=== PATIENT | male | born 1960 | race Caucasian/White ===

== ENCOUNTER 2017-07-29 17:09 | Inpatient (IN) | payer OTHER ==
[~2017-07-29] VITALS: Ht 170.2 cm; Wt 62.1 kg
[2017-07-29 17:14] VITALS: BP 123/83
[2017-07-29 17:51] LABS: HEMATOCRIT 35.1 % (42.0-52.0); HEMOGLOBIN 11.7 gm/dL (14.0-18.0); MCH 29.6 pg (26.0-34.0); MCHC 33.4 g/dL (28.0-37.0); MCV 88.6 fL (80.0-100.0); MPV 7.1 fl. (7.2-11.1); NUCLEATED RBCS 0 /100WBC; PLATELET COUNT* 309 thou/uL (150-400); RBC 3.97 mil/uL (4.50-6.00); RDW-CV 13.1 % (10.5-14.5); WBC 13.6 thou/uL (4.0-11.0)
[2017-07-29 17:59] LABS: CREATININE 1.1 mg/dL (0.6-1.3); POTASSIUM 3.5 mmol/L (3.5-5.1)
[2017-07-29 18:00] LABS: APTT 31.9 Seconds (25.0-31.3); INR 1.1; PROTIME 10.3 Seconds (9.20-11.50)
[2017-07-29 18:04] LABS: ALBUMIN 2.9 g/dL (3.4-5.0); TOTAL BILIRUBIN 1.5 mg/dL (<0.1-1.0); TOTAL PROTEIN 7.1 g/dL (6.4-8.2)
[2017-07-29 18:52] LABS: ABSOLUTE LYMPHOCYTES 1.9 thou/uL (0.8-5.3); ABSOLUTE MONOCYTES 1.5 thou/uL (0.0-1.2); ABSOLUTE NEUTROPHILS 10.2 thou/uL (1.6-8.1)
[2017-07-29 18:53] LABS: PLATELET ESTIMATE ADEQUATE
[2017-07-29 20:09] VITALS: BP 112/78
[2017-07-30 00:06] VITALS: BP 100/64
[2017-07-30 05:32] LABS: HEMATOCRIT 32.8 % (42.0-52.0); HEMOGLOBIN 11.2 gm/dL (14.0-18.0); MCH 30.1 pg (26.0-34.0); MCHC 34.1 g/dL (28.0-37.0); MCV 88.1 fL (80.0-100.0); MPV 7.6 fl. (7.2-11.1); RBC 3.72 mil/uL (4.50-6.00); RDW-CV 12.8 % (10.5-14.5)
[2017-07-30 06:19] LABS: ALBUMIN 2.4 g/dL (3.4-5.0); CALCIUM 8.3 mg/dL (8.5-10.1); CREATININE 0.8 mg/dL (0.6-1.3); MAGNESIUM 1.7 mg/dL (1.8-2.4); POTASSIUM 3.7 mmol/L (3.5-5.1); TOTAL BILIRUBIN 1.9 mg/dL (<0.1-1.0); TOTAL PROTEIN 5.5 g/dL (6.4-8.2)
--- NOTE | 2017-07-30 06:25 | NUR ---
ASSESSMENT COMPLETE. PT ADMITTED WITH LEFT HAND CELLULITIS AND NECROSIS OF LEFT MIDDLE FINGER. PT GIVEN IV ANTIBIOTICS AND IV FLUIDS INFUSING. ORTHO AND INFECTIOUS DISEASE CONSULTED. PT HAS BEEN NPO SINCE MIDNIGHT. LEFT HAND ELEVATED WITH PILLOW. PT DENIES NEED FOR PAIN MEDICATION THROUGH THE NIGHT. PT IS ON ROOM AIR WITH [place] SATS. PT IS UP AD CODIE WITH STEADY GAIT. SEE ASSESSMENT AND VITALS FOR OTHER DETAILS. CALL LIGHT WITHIN REACH, WILL CONTINUE PLAN OF CARE
[2017-07-30 08:25] VITALS: BP 103/61
[2017-07-30 11:22] VITALS: BP 103/61
[2017-07-30 14:15] LABS: GLYCOHEMOGLOBIN (HGB A1C) 5.7 % (4.8-5.6)
[2017-07-30 16:18] VITALS: BP 102/66
--- NOTE | 2017-07-30 16:18 | NUR ---
PATIENT RETURNED FROM OR THIS EVENING. LEFT MIDDLE FINGER DISTAL AMPUTATION NOTED. LEFT HAND WRAPPED AND ELEVATED. FINGERS WARM TO THE TOUCH AND ABLE TO MOVE, CAP REFILL LESS THAN 3 SECONDS. IVF AND SCHED ABX REMAIN. REG DIET ORDERED. NO COMPLAINTS OF PAIN. MG 1.7, ORDERS TO REPLACE.
--- NOTE | 2017-07-30 16:19 | NUR ---
SW attempted to complete initial assessment, pt out of room. SW to continue to follow to meet and assist with safe dc planning.
[2017-07-30 20:01] VITALS: BP 108/64
[2017-07-31 00:25] VITALS: BP 96/55
[2017-07-31 05:23] LABS: HEMATOCRIT 35.1 % (42.0-52.0); HEMOGLOBIN 11.8 gm/dL (14.0-18.0); MCH 29.5 pg (26.0-34.0); MCHC 33.6 g/dL (28.0-37.0); MCV 87.8 fL (80.0-100.0); MPV 7.7 fl. (7.2-11.1); RDW-CV 12.6 % (10.5-14.5); WBC 12.2 thou/uL (4.0-11.0)
[2017-07-31 05:44] LABS: ALBUMIN 2.1 g/dL (3.4-5.0); CALCIUM 8.2 mg/dL (8.5-10.1); CREATININE 0.9 mg/dL (0.6-1.3); MAGNESIUM 2.2 mg/dL (1.8-2.4); POTASSIUM 4.2 mmol/L (3.5-5.1); TOTAL BILIRUBIN 0.4 mg/dL (<0.1-1.0); TOTAL PROTEIN 6.1 g/dL (6.4-8.2)
--- NOTE | 2017-07-31 06:45 | NUR ---
ASSESSMENT COMPLETE. PT DENIES NEED FOR PAIN MEDS DURING THE NIGHT. PT SLEPT THROUGHOUT THE NIGHT. PT TOLERATED DIET. PT IS ON ROOM WITH WITH ADEQUATE SATS. AFEBRILE THROUGHOUT THE NIGHT. LEFT HAND DRESSING C/D/I, ELEVATED ON PILLOW. PT IS UP AD CODIE WITH STEADY GAIT. SEE ASSESSMENT AND VITALS FOR OTHER DETAILS. CALL LIGHT WITHIN REACH, WILL CONTINUE PLAN OF CARE
[2017-07-31 07:28] VITALS: BP 97/56
[2017-07-31 11:30] VITALS: BP 95/54
[2017-07-31 11:59] VITALS: BP 95/54
--- NOTE | 2017-07-31 12:25 | CON ---
[address] [address] CONSULTATION Name: KALINAYOAN E Room: [address] IN M.R.#: [id number] Admission: 07/29/17 Attend Phys: Kandi Gould MD Discharge: Date of : 62 Report #: [id number] THIS REPORT FOR: //name// CC: LI physician/PCP Kandi Gould DATE OF SERVICE: 07/30/2017 INFECTIOUS DISEASE CONSULTATION ATTENDING PHYSICIAN: Dr. Gould. REASON FOR EVALUATION: Left hand inflammatory process, primarily centered on the third digit, may have a component of skin and soft tissue necrosis. HISTORY OF PRESENT ILLNESS: This is a 57-year-old who was admitted through the Emergency Room with complaints of increasing pain and swelling, associated with his left hand, particularly the third finger. He is unaware of any particular antecedent injury, although he uses his hands quite a bit for work. It is not clear if he has had fevers or chills. He notes his appetite has been somewhat diminished. Denies significant pulmonary or gastrointestinal-related complaints. He was evaluated including imaging, which showed marked soft tissue involvement. Sed rate was 75. CRP was 144. Lactic acid 0.8. He is currently n.p.o. pending . ALLERGIES: IODINE. MEDICATIONS: Include vancomycin, enoxaparin, famotidine, ceftriaxone, ibuprofen, p.r.n. analgesics and antiemetics. PAST MEDICAL HISTORY: Otherwise unremarkable. SOCIAL HISTORY: He uses methamphetamine. Nonsmoker. No current ethanol use. FAMILY HISTORY: Noncontributory. REVIEW OF SYSTEMS: As above. PHYSICAL EXAMINATION: GENERAL: He is quite somnolent at this point. He does wake up briefly. He seems to be oriented. He appears older than his stated age, but chronically ill. VITAL SIGNS: Temperature 98.8, pulse 88, respirations 16 and blood pressure 103/61. SKIN: Warm, dry. HEENT: Otherwise[place] [address] CONSULTATION Name: YOAN GILMAN Room: [address]#: [id number] Admission: 07/29/17 Attend Phys: Kandi Gould MD Discharge: Date of : 62 Report #: [id number] NECK: Supple. LUNGS: Diminished breath sounds. HEART: Regular. I do not appreciate a murmur. ABDOMEN: Soft, nontender and nondistended. EXTREMITIES: Left distal upper extremity has ghgpgrhq-qp-pafkto inflammatory changes, in particular associated with the third finger, with the evidence that suggests subcutaneous purulent fluid collection. His right knee is not particularly painful. There is some discomfort with manipulation of the digit. The swelling extends above the wrist. GENITOURINARY: Deferred. RECTAL: Deferred. LABORATORY DATA: Blood cultures are sterile thus far. Electrolytes: Sodium 138, potassium 3.7, chloride 103, bicarbonate 27, BUN and creatinine 15 and 0.8 and glucose of 81. AST of 62, ALT of 155 and alkaline phosphatase of 193. Albumin 2.4. Total protein 5.5. CBC: White count 11.0, H and H 11.2 and 32.8 and platelets of 250,000. Sed rate of 75. CRP of 143.9. Lactic acid of 0.8. Plain film of the right hand shows marked soft tissue swelling, thickening involving the third digit, left hand, with evidence of cortical bone destruction involving the terminal tuft of the distal phalanx, small bubble of gas in the soft tissue, with probable deep infection. ASSESSMENT AND PLAN: Deep infection involving the right hand. It may well be a necrotizing component. Surgery has been consulted. He is n.p.o. and I agree with that approach. We will continue empiric antimicrobial therapy at this point. We will follow expectantly. <ELECTRONICALLY SIGNED> By: Puneet King MD 07/31/17 1225 1009 [id number] King MD /nt
--- NOTE | 2017-07-31 13:17 | OP ---
[address] [address] OPERATIVE REPORT Name: KALINAYOAN Jesu Room: [address] IN .R.#: [id number] Admission: 07/29/17 Attend Phys: Kandi Gould MD Discharge: Date of : 62 Report #: [id number] THIS REPORT FOR: //name// CC: LI physician/PCP Kandi Gould DATE OF SERVICE: 07/30/2017 PREOPERATIVE DIAGNOSES: Left long finger cellulitis/abscess, osteomyelitis of the distal phalanx. POSTOPERATIVE DIAGNOSES: Left long finger cellulitis/abscess, osteomyelitis of the distal phalanx. SURGEON: Yoel Vazquez DO. SCREENER AND BLENDER: Dr. Drake Ruiz, resident. SECOND PREMIX OPERATOR CONCENTRATE: Isaias Simmons DO., resident. SURGERY PERFORMED: 1. The left long finger partial amputation through the DIP joint. 2. Excisional debridement by sharp dissection 4 cm dorsal from the DIP joint extending proximally and 2 cm zigzag volar incision to bone on the volar side with bone and tissue cultures. ANESTHESIA: General. The patient has been on antibiotics preoperatively, routine scheduled. ESTIMATED BLOOD LOSS: 5 mL. SPECIMENS: Bone and tissue. COMPLICATIONS: None. GROSS FINDINGS: Prior to surgery, the patient demonstrated a radiograph of the left hand correlated with distal phalanx osteomyelitis. Intraoperatively, his finger presented with edematous left long finger with severe purulence upon clinical palpation while under anesthesia, extending to the dorsal side of the finger through a hole over the proximal phalanx region. Once the nail was removed, a gross amount of purulence came out and actually circumferentially went around the entire finger beneath the skin, destroyed significant amount of soft tissue down to the bone in many areas. Gross purulence was noted within it and was very malodorous. The patient's post-release of a [place] tourniquet across the finger did demonstrate some pinking [place] [address] OPERATIVE REPORT Name: YOAN GILMAN Room: [address]#: [id number] Admission: 07/29/17 Attend Phys: Kandi Gould MD Discharge: Date of : 62 Report #: [id number] surgery. DESCRIPTION OF PROCEDURE: This gentleman was taken to the operating room and placed on table, given the benefit of a general anesthetic. He underwent a chlorhexidine prep and sterile draping for left long finger surgery. Timeout was called and verified. At this point in time, surgery began with just removal of the nail initially and at this point in time, there was a gross amount of purulence coming out of multiple areas of his finger dorsally and underneath the nail. These were all cultured, aerobic and anaerobic. At this point in time, it was noted just had a shell of tissue that was actually peeled right off the bone in that dorsal segment and the entire fingertip. I did a sharp dissection just to get down to the level of distal phalanx was necrotic in nature and looking, and it was removed by sharp dissection through the DIP joint. I removed the most distal part of the proximal phalanx next with a bone block cutting technique. Once this was accomplished, his flexor tendon was still visible. Extensor tendon had macerated areas eaten up as well. These were all copiously irrigated with normal saline by gravity draining. Surgery continued using a zigzag volar incision to explore more of the flexor tendon, removed necrotic tissues off that side as well. The patient, at this stage, then had the tourniquet released. Once the tourniquet was released, there was noted to be some bleeding around pinking up of the tissues. Once this was accomplished, the flexor tendons, a small drill hole was made through that distal proximal phalanx. Flexor tendon and extensor tendon were tied down through the drill hole. The skin was loosely closed now secondary to the edematous nature with 2-0 and 3-0 [id number]-[id number] and simple nylon. Xeroform, 4 x 4s, Kerlix, bulky hand dressing. Gentleman was transferred off the table, taken to recovery in stable condition. I attest I was present for all critical aspects of surgery. Needle, instrument and sponge counts correct. The patient will be followed closely as this might require repeat surgeries yet and/or further amputation. This will be discussed with the appropriate <ELECTRONICALLY SIGNED> By: oYel Vazquez DO 07/31/17 1317 1516 [id number] Vazquez DO /becka
[2017-07-31 14:57] VITALS: BP 100/50
[2017-07-31 16:12] LABS: HEPATITIS B SURFACE AG Negative (Negative)
--- NOTE | 2017-07-31 16:25 | NUR ---
PATIENT A&OX4, ROOM AIR, IV RIGHT FOREARM SALINE LOCK. UP AD CODIE, ENCOURAGED TO GET UP IN CHAIR FOR MEALS AND AMBULATE IN HALLWAY, NOT ALWAYS COMPLIENT. ENCOURAGEMENT REPEATEDLY GIVEN. NO C/O PAIN AT THIS TIME. PATIENT SLEEPS OFTEN IN ROOM. CELLULITIS TO RIGHT HAND, MIDDLE FINGER NECROTIC, TIP AMPUTATED. NO OTHER CONCERNS AT THIS TIME. APPROPRAITE AND COOPORATIVE WITH CARE.
[2017-08-01 00:11] VITALS: BP 110/56
[2017-08-01 03:20] LABS: HEMATOCRIT 33.2 % (42.0-52.0); HEMOGLOBIN 11.4 gm/dL (14.0-18.0); MCH 30.3 pg (26.0-34.0); MCHC 34.3 g/dL (28.0-37.0); MCV 88.2 fL (80.0-100.0); MPV 7.5 fl. (7.2-11.1); RBC 3.76 mil/uL (4.50-6.00); RDW-CV 12.9 % (10.5-14.5); WBC 9.5 thou/uL (4.0-11.0)
[2017-08-01 03:37] LABS: ALBUMIN 2.1 g/dL (3.4-5.0); CALCIUM 8.3 mg/dL (8.5-10.1); CREATININE 0.9 mg/dL (0.6-1.3); MAGNESIUM 1.8 mg/dL (1.8-2.4); TOTAL BILIRUBIN 0.3 mg/dL (<0.1-1.0)
--- NOTE | 2017-08-01 05:28 | NUR ---
ASSESSMENT COMPLETE. PT SLEPT THROUGHOUT THE NIGHT. PT DENIES PAIN. PT HAS BEEN AFEBRILE. LEFT HAND DRESSING C/D/I AND ELEVATED WITH PILLOW. PT HAS IV IN RIGHT FOREARM, SALINE LOCKED. PT HS ACCUCHECK WITHIN NORMAL LIMITS. PT DENIES N/V/D. PT IS UP AD CODIE. SEE ASSESSMENT AND VITALS FOR OTHER DETAILS. CALL LIGHT WITHIN REACH, WILL CONTINUE PLAN OF CARE
[2017-08-01 07:55] VITALS: BP 101/63
--- NOTE | 2017-08-01 14:30 | NUR ---
THEODORE met with pt to complete assessment and discuss safe dc planning. Pt says that he will go to stay with a friend or stay on his land (pt says he has 8 acres) in a home that he has "a section". THEODORE discussed support system and wound care needs and pt said that he has family and one is a nurse who he says will help him with any bandages and cleaning. Pt says that he has [employer] insurance and he is not concerned with the scripts. THEODORE discussed following up with Keri Joya for wound care needs and he said that he was not concerned with having to go to [facility] [place] he continues to attest that his insurance will cover care. SW encouraged pt to provide insurance info again since we did not have record that pt has active, accurate insurance information. Pt said he has a ride home. THEODORE provided Keri information and provided Rx and resource lists to nurse who provided to pt. Pt said he provided number of insurance plan to admitting although the number noted to be under pt father's name.
[2017-08-01 14:33] VITALS: BP 101/63
--- NOTE | 2017-08-01 15:04 | S ---
[facility] [address] [place] [address] SURGICAL PATH RPT PROCEDURE Name: YOAN THOMPSON Room: [address] IN M.R.#: [id number] Admission: 07/29/17 Date of : 62 Discharge: Report #: [id number] Path Case #: [id number] PATHOLOGY REPORT COLLECTION DATE: 07/30/2017 RECEIVED DATE: 07/30/2017 SUBMITTING PHYS: Dr. Yoel Vazquez OTHER PHYS: Dr. Kandi Gould SPECIMEN(S) RECEIVED: A.L long finger tissue B.Distal phalynx left long finger * * * * * * * * * * * * FINAL DIAGNOSIS: A. Left long finger tissue: - Benign skin with nonspecific ulceration, acute and chronic inflammation and necrosis. B. Distal phalanx left long finger: - Benign osteocartilaginous segment with prominent osteomyelitis (see comment). COMMENT: Osteomyelitis does not traverse the cartilaginous articular end of the bone segment (B). (CYNTHIA:pit; 08/01/2017) PATHOLOGIST: Garcia Latif M.D. REPORT ELECTRONICALLY SIGNED BY: Garcia Latif M.D. DATE/TIME: 08/01/2017 15:04 * * * * * * * * * * * * GROSS PATHOLOGY: A. Received in formalin labeled "Yoan Thompson, tissue left long finger," is a large segment of smooth to granular, pale khanna to khanna-brown skin measuring 7.4 x 2.9 x 0.1 cm in greatest dimensions. Also received within the specimen container is a dome-shaped segment of skin with attached underlying soft tissue measuring 2.4 x 1.9 x 1.6 cm in greatest dimensions. This segment displays a well-circumscribed, grossly ulcerated lesion measuring 1.2 x 1.0 cm that grossly appears to abut the surgical margin. The underlying soft tissue is khanna-tenorio and necrotic in appearance. Also received within the specimen container are three segments of khanna-tenorio, necrotic-appearing soft tissue measuring 2.7 x 1.8 x 1.1 cm in greatest dimensions. Gross photographs are taken. [employer] tissue is submitted in cassettes A1 and A2. B. Received in formalin labeled "Yoan Thompson, [place] [address] SURGICAL PATH RPT PROCEDURE Name: THOMPSONYOAN Room: [address] IN [facility]#: [id number] Admission: 07/29/17 Date of : 62 Discharge: Report #: [id number] Path Case #: [id number] long finger," is a segment of bone with scant attached soft tissue measuring 1.3 x 1.3 x 1.3 cm in greatest dimensions. One bone margin is smooth and concave in appearance, consistent with disarticulation; this margin is inked red. The opposite bone margin is jagged in appearance; this margin is inked black. A full-thickness cross section is submitted in cassette B1, following decalcification. ([facility]; 07/31/2017) CLINICAL HISTORY: Pre-op diagnosis: Cellulitis left long finger Post-op diagnosis: Same and osteomyelitis left long finger INITIAL CPT CODE(S): A; 86358 B; 06881, 20768 Professional services performed by [facility] at [facility], [address], [place] [address]. Technical services performed by [facility] at [address] [place] [address], [facility] [address], [place] [address]. [facility] [address] [place] [address] PHONE: [phone] DIRECTOR: Luis Bnoe M.D. * * * END OF REPORT * * *
--- NOTE | 2017-08-01 17:21 | NUR ---
PATIENT A&OX4, ROOM AIR, IV RIGHT FOREARM SALINE LOCK. UP AD CODIE, STEADY GAIT. PATEINT ADIMENT ABOUT LEAVING TODAY. STATED HE WAS LEAVING TODAY WHETHER DISCHARGED OR NOT. SPOKE WITH PHYSICIAN, GAVE VERBAL TELEPHONE ORDERS FOR DISCHARGE. PERSCRIPTION FOR BACTRIM GIVEN TO PATIENT. ONE DOSE GIVEN PRIOR TO DISCHARGE. REVIEWED DISCHARGE PAPERWORK WITH PATIENT, VERBALIZES UNDERSTANDING, NO FURTHER QUESTIONS AT THIS TIME. LEFT UNIT AT 1715 AMBULATORY, WITH NURSING STAFF AND FAMILY FRIEND. APPROPRIATE AND COOPORATIVE WITH CARE
== END 2017-08-01 17:15 | disposition home or self-care (01) | DRG 580 ==
LOC: M.ERS 17:09 → M.3W 17:53 → M.TBA-ER 17:53 → M.3W 20:03
PROVIDERS: Nurse Practitioner Family; Orthopaedic Surgery; ADMIT Internal Medicine
PROC: 0PBV0ZZ Excision of Left Finger Phalanx, Open Approach (ICD-10-PCS; principal; 2017-07-30)
PROC: 0X6R0Z3 Detachment at Left Middle Finger, Low, Open Approach (ICD-10-PCS; principal; 2017-07-30)
DX: L03.012 Cellulitis of left finger (principal); M86.8X8 Other osteomyelitis, other site; L02.512 Cutaneous abscess of left hand; Z91.041 Radiographic dye allergy status; Z79.899 Other long term (current) drug therapy